=== PATIENT | female | born 2000 | race Hispanic/Latino ===

== ENCOUNTER 2023-04-15 07:30 | Inpatient (IN) | payer BC ==
[2023-04-12 11:41] LABS: BASOPHILS % 0.1 % (0.0-1.0); EOSINOPHILS # (AUTO) 0.1 (0.0-0.4); EOSINOPHILS % 1.3 % (0.0-6.0); HEMATOCRIT 38.6 % (34.2-44.1); HEMOGLOBIN 12.7 g/dL (12.0-16.0); LYMPHOCYTES # (AUTO) 1.7 (1.0-3.2); LYMPHOCYTES % 23.1 % (18.0-39.1); MEAN CORPUSCULAR HEMOGLOBIN 27.3 pg (28-32); MEAN CORPUSCULAR HGB CONC 32.9 g/dL (31-35); MONOCYTES # (AUTO) 0.6 (0.2-0.8); MONOCYTES % 7.8 % (4.4-11.3); NEUTROPHILS # (AUTO) 4.9 (2.1-6.9); NEUTROPHILS % 67.4 % (38.7-80.0); PLATELET COUNT 319 x10e3/uL (140-360); RED BLOOD COUNT 4.65 x10e6/uL (3.6-5.1); WHITE BLOOD COUNT 7.19 x10e3/uL (4.8-10.8)
[2023-04-15] VITALS (8 sets, daily range): BP systolic 128–138; BP diastolic 62–83; PULSE 72–92; RESP 16–18; TEMP 98.4–99.4; O2SAT 100
[~2023-04-15] VITALS: Ht 165.1 cm; Wt 118.4 kg
[~2023-04-15 07:30] MED LIST: CEFAZOLIN SODIUM 2 GM ONE; LACTATED RINGER'S 1,000 ML ONE
[2023-04-15] MEDS ORDERED: ONDANSETRON HCL INJ 2MG/ML 2ML 2 MG/ML VIAL IV PRN (08:00)
[2023-04-15] MEDS ORDERED: HYDROCODONE/APAP 7.5MG-325MG 1 EA TAB PO PRN (08:00)
[2023-04-15] MEDS ORDERED: Morphine 2mg Syringe 2 MG/ML SYR IV PRN (08:00)
[2023-04-15] MEDS: LACTATED RINGER'S 1,000 ML IV SCH ×2 (08:00→16:49)
[2023-04-15] MEDS ORDERED: BUPIVACAINE 0.25% 30ML SDV ONE ×2 (08:44→13:22)
[2023-04-15] MEDS: PROMETHAZINE HCL (IM) 25 MG/ML VIAL IM ONE ×2 (10:15→10:37)
[2023-04-15] MEDS ORDERED: SCOPOLAMINE 1 MG PATCH ONE (11:15)
[2023-04-15] MEDS ORDERED: MIDAZOLAM HCL 2 MG/2 ML VIAL ONE (11:40)
[2023-04-15] MEDS ORDERED: FENTANYL CITRATE/PF 100MCG/2 ML INJ ONE (11:40)
[2023-04-15] MEDS ORDERED: SCOPOLAMINE 1 MG PATCH TOP SCH (12:00)
[2023-04-15] MEDS ORDERED: PROPOFOL IV EMULSION 10 MG/ML 20 ML VIAL ONE (19:42)
[2023-04-15] MEDS ORDERED: SUGAMMADEX SODIUM 200 MG/2 ML VIAL IV ONE (19:42)
[2023-04-15] MEDS ORDERED: DEXAMETHASONE SOD PHOS INJ 4 MG/ML SDV ONE (19:42)
[2023-04-15] MEDS ORDERED: ROCURONIUM BROMIDE 10 MG/ML 5ML VIAL IV ONE (19:42)
[2023-04-15] MEDS ORDERED: LIDOCAINE HCL 2% LOCAL INJ 5 ML SDV VIAL INJ ONE (19:42)
[2023-04-15] MEDS ORDERED: ACETAMINOPHEN 1000 MG/100 ML IV ONE (19:42)
[2023-04-15] MEDS ORDERED: DEXMEDETOMIDINE HCL 200 MCG/2 ML VIAL ONE (19:42)
[2023-04-15] MEDS ORDERED: ONDANSETRON HCL INJ 2MG/ML 2ML 2 MG/ML VIAL ONE (19:42)
[2023-04-15] MEDS ORDERED: SEVOFLURANE INHAL SOLN 250 ML PEN BTL ONE (19:42)
[2023-04-15] MEDS ORDERED: ENOXAPARIN SOD INJ 40 MG/0.4 ML SYR SC SCH (20:00)
[2023-04-16] VITALS: BP 127/66; PULSE 84; RESP 18; TEMP 99.7; O2SAT 100
[2023-04-16] MEDS: LACTATED RINGER'S 1,000 ML IV SCH (02:03)
[2023-04-16 05:19] LABS: BASOPHILS % 0.1 % (0.0-1.0); HEMATOCRIT 37.1 % (34.2-44.1); HEMOGLOBIN 12.1 g/dL (12.0-16.0); LYMPHOCYTES # (AUTO) 1.2 (1.0-3.2); LYMPHOCYTES % 10.8 % (18.0-39.1); MEAN CORPUSCULAR HEMOGLOBIN 27.4 pg (28-32); MEAN CORPUSCULAR HGB CONC 32.6 g/dL (31-35); MEAN CORPUSCULAR VOLUME 84.1 fL (81-99); MONOCYTES # (AUTO) 0.7 (0.2-0.8); MONOCYTES % 5.9 % (4.4-11.3); NEUTROPHILS # (AUTO) 9.5 (2.1-6.9); NEUTROPHILS % 82.9 % (38.7-80.0); PLATELET COUNT 343 x10e3/uL (140-360); RED BLOOD COUNT 4.41 x10e6/uL (3.6-5.1); RED CELL DISTRIBUTION WIDTH 12.9 % (11.7-14.4); WHITE BLOOD COUNT 11.44 x10e3/uL (4.8-10.8)
[2023-04-16 05:43] VITALS: BP 107/58; PULSE 60; RESP 18; TEMP 98.4; O2SAT 100
[2023-04-16 05:45] LABS: ALBUMIN 3.8 g/dL (3.5-5.0); ALBUMIN/GLOBULIN RATIO 1.2 (0.8-2.0); BILIRUBIN,TOTAL 1.4 mg/dL (0.2-1.2); CALCIUM 8.8 mg/dL (8.4-10.2); CREATININE, SERUM 0.67 mg/dL (0.57-1.11); MAGNESIUM 1.7 MG/DL (1.3-2.1); PHOSPHORUS 3.2 MG/DL (2.3-4.7); TOTAL PROTEIN 6.9 g/dL (6.5-8.1)
[2023-04-16 07:05] VITALS: PULSE 74; RESP 20; O2SAT 98
[2023-04-16 08:04] VITALS: BP 104/55; PULSE 86; RESP 20; TEMP 98.2; O2SAT 100
== END 2023-04-16 09:59 | disposition home or self-care (01) | DRG 621 ==
LOC: OR 07:30 → PACU V 07:46 → MED/SURG 12:12
PROVIDERS: ADMIT Internal Medicine; ATTEND Internal Medicine
PROC: 0DB64Z3 Excision of Stomach, Percutaneous Endoscopic Approach, Vertical (ICD-10-PCS; principal; 2023-04-15 08:51)
DX: E66.01 Morbid (severe) obesity due to excess calories (principal); Z68.42 Body mass index [BMI] 45.0-49.9, adult; G47.33 Obstructive sleep apnea (adult) (pediatric); I10 Essential (primary) hypertension; K76.0 Fatty (change of) liver, not elsewhere classified; R74.01 Elevation of levels of liver transaminase levels; F41.9 Anxiety disorder, unspecified; F17.290 Nicotine dependence, other tobacco product, uncomplicated
CPT/HCPCS: 36415; 80053; 81025; 83735; 84100; 85025; 94640; 94799; J1100; J1650; J2001; J2250; J2405; J2550